=== PATIENT | female | born 1935 | race Caucasian/White ===

== ENCOUNTER 2021-11-29 09:33 | Inpatient (IN) | payer MEDICARE ==
[~2021-11-29] VITALS: Ht 154.9 cm; Wt 49.9 kg
[2021-11-29] MEDS ORDERED: FOLI1TAB94 PO (10:00)
[2021-11-29] MEDS ORDERED: AZAT50TA18 PO (10:00)
[2021-11-29] MEDS ORDERED: VITAMIN D PO (10:00)
[2021-11-29] MEDS ORDERED: METH2.5T PO (10:00)
[2021-11-29] MEDS ORDERED: FLUT12AE5 INH (10:00)
[2021-11-29] MEDS ORDERED: FEXO-65 PO (10:00)
[2021-11-29] MEDS ORDERED: CALC600T35 PO (10:00)
--- NOTE | 2021-11-29 10:00 | NUR ---
PATIENT REMOVED FROM ROOM 3 AND INTO RM 4 B, OTOSCOPE NEEDED FOR DR. DEGROOT'S EVALUATION. REPORTS FALL AND PASSING OUT FOR MAYBE A SECOND WHILE STEPPING OUT OF SHOWER IN HOTEL. HERE VISITING FROM [place]. PLACED ON MONITOR AND VS Q 2 HOURS.
[2021-11-29] MEDS ORDERED: ZOLE5INF IV (10:06)
[2021-11-29] MEDS ORDERED: ONDANSETRON 4 MG/2 ML VIAL ONE (10:12)
[2021-11-29] MEDS ORDERED: CEFTRIAXONE /D5W 50ML IVPB **ER PYXIS IV ONE (10:12)
[2021-11-29] MEDS ORDERED: ONDANSETRON 4 MG/2 ML VIAL IV ONE (10:15)
[2021-11-29] MEDS ORDERED: IV NORMAL SALINE 1000 ML BAG IV ONE (10:15)
[2021-11-29] MEDS ORDERED: CEFTRIAXONE 1 G in IV DEXTROSE 5% 50 ML IV ONE (10:15)
--- NOTE | 2021-11-29 10:33 | NUR ---
PT SEEN AND EVALUATED BY DR DEGROOT. AT BEDSIDE.
[2021-11-29 10:46] LABS: HEMATOCRIT 43.5 % (31.2-41.9); MEAN CORPUSCULAR VOLUME 97.2 fL (75.5-95.3); PLATELET COUNT (AUTO) 310 K/uL (179-408)
[2021-11-29 11:00] LABS: ALANINE AMINOTRANSFERASE 14 U/L (14-59); ALKALINE PHOSPHATASE 38 U/L (50-136); ASPARTATE AMINOTRANSFERASE 12 U/L (15-37); BILIRUBIN,DIRECT 0.2 mg/dL (0.0-0.2); BILIRUBIN,TOTAL 1.1 mg/dL (0.2-1.0); CARBON DIOXIDE 25 mmol/L (21-32); CHLORIDE 102 mmol/L (98-107); CREATININE 0.9 mg/dL (0.6-1.3); GLUCOSE 104 mg/dL (74-106); POTASSIUM 3.9 mmol/L (3.5-5.1); TOTAL PROTEIN, SERUM 7.8 g/dL (6.4-8.2); UREA NITROGEN, BLOOD 17 mg/dL (7-18)
[2021-11-29] MEDS ORDERED: LIDOCAINE 2%-EPI 1:100,000 20 ML VIAL ONE (11:44)
[2021-11-29] MEDS ORDERED: SODIUM BICARBONATE 4.2 % (NEUT) 5 ML VIAL TP ONE (11:45)
[2021-11-29] MEDS ORDERED: TDAP DIPH,PERTUSS,TET VAC/PF 0.5 ML DISP.SYRIN IM ONE ×2 (11:45→12:18)
[2021-11-29] MEDS ORDERED: SODIUM BICARBONATE 4.2 % (NEUT) 5 ML VIAL ONE (11:45)
[2021-11-29] MEDS ORDERED: LIDOCAINE 1%-EPI 1:100,000 20 ML VIAL IJ ONE (11:45)
[2021-11-29 12:00] VITALS: BP 124/62
--- NOTE | 2021-11-29 12:00 | NUR ---
NO DISTRESS NOTED, VSS, LIPS SUTURES INTACT. MARISA FLUIDS AND AWAITING ADMISSION ORDERS AND BED AVAIL
[2021-11-29] MEDS ORDERED: ACETAMINOPHEN ES 500 MG TABLET PO ONE (15:15)
[2021-11-29] MEDS ORDERED: ONDANSETRON 4 MG/2 ML VIAL IV PRN (15:15)
[2021-11-29] MEDS ORDERED: IV 1/2NS 1000 ML 1,000 ML IV PRN (15:15)
[2021-11-29] MEDS ORDERED: REMEDY ESSENTIAL ZINC PASTE 113 GM TP PRN (15:15)
[2021-11-29] MEDS ORDERED: ACETAMINOPHEN 325 MG TABLET ONE (15:37)
[2021-11-29] MEDS ORDERED: ENOXAPARIN SODIUM 40 MG/0.4 ML DISP.SYRIN SQ ONE (15:37)
[2021-11-29 16:00] VITALS: BP 119/61
[2021-11-29] MEDS: ACETAMINOPHEN 325 MG TABLET PO PRN (16:07)
[2021-11-29] MEDS: ENOXAPARIN SODIUM 40 MG/0.4 ML DISP.SYRIN SQ SCH (16:14)
--- NOTE | 2021-11-29 16:20 | NUR ---
ASKED REG TO PLACED PT IN TRANSITION FOR MEDS TO BE VERIFY BY PHARMACY.
--- NOTE | 2021-11-29 19:25 | NUR ---
NO DISTRESS, DENIES ESTRADA AND LOWER LIP DISCOMFORT, MARISA SOUP 180 ML PO.VOIDING WITHOUT DIFFICULTY. 1/2 NS INFUSING AT 75 ML/HR VIA PUMP RIGHT AC.
[2021-11-29 20:00] VITALS: BP 133/66
[2021-11-29] MEDS ORDERED: MAGNESIUM HYDROXIDE 30 ML LIQUID UDC PO PRN (21:00)
--- NOTE | 2021-11-29 22:00 | NUR ---
NO DISTRESS NOTED, VSS,PER CM NSR.
--- NOTE | 2021-11-29 23:20 | NUR ---
REPORTED OF TO INCOMING RN ASSUMING CARE
--- NOTE | 2021-11-30 05:43 | NUR ---
pt able to walk to the bathroom with no difficulty or SOB. Pt denies dizziness. No bleeding on the sutures on the lip.
[2021-11-30 06:19] LABS: HEMATOCRIT 38.3 % (31.2-41.9); MEAN CORPUSCULAR VOLUME 98.6 fL (75.5-95.3); PLATELET COUNT (AUTO) 277 K/uL (179-408)
[2021-11-30] MEDS ORDERED: PANTOPRAZOLE SODIUM 40 MG TABLET.DR PO SCH (07:00)
[2021-11-30 07:09] LABS: CARBON DIOXIDE 23 mmol/L (21-32); CHLORIDE 104 mmol/L (98-107); GLUCOSE 66 mg/dL (74-106); POTASSIUM 4.1 mmol/L (3.5-5.1)
[2021-11-30 07:10] LABS: CHOLESTEROL 240 mg/dL (<200); CREATININE 0.7 mg/dL (0.6-1.3); HDL CHOLESTEROL 92 mg/dL (40-60); MAGNESIUM 1.8 mg/dL (1.8-2.4); TRIGLYCERIDES 78 MG/DL (30-150); UREA NITROGEN, BLOOD 21 mg/dL (7-18)
--- NOTE | 2021-11-30 07:10 | NUR ---
Care assumed and bedside report obtained. VSS and patient reports ESTRADA 5 med with tylenol po 650 mg.
[2021-11-30] MEDS ORDERED: ACETAMINOPHEN 325 MG TABLET ONE (07:26)
--- NOTE | 2021-11-30 07:41 | NUR ---
Report given to [place].
[2021-11-30 07:56] LABS: THYROID STIMULATING HORMONE 1.126 mIU/mL (0.358-3.740)
[2021-11-30 07:57] VITALS: BP 143/77
[2021-11-30] MEDS ORDERED: PANTOPRAZOLE SODIUM 40 MG TABLET.DR PO ONE (08:04)
[2021-11-30] MEDS: ACETAMINOPHEN 325 MG TABLET PO PRN (08:05)
[2021-11-30] MEDS ORDERED: ENOXAPARIN SODIUM 40 MG/0.4 ML DISP.SYRIN SQ ONE (09:20)
[2021-11-30] MEDS: ENOXAPARIN SODIUM 40 MG/0.4 ML DISP.SYRIN SQ SCH (10:02)
--- NOTE | 2021-11-30 10:40 | NUR ---
REPORT WAS GIVEN TO PASTRY COOK. PT WAS TRANSFERED TO TELEMETRY ROOM #329.
[2021-11-30 12:30] VITALS: BP_SYST 140; BP_SYST 147; BP_SYST 149; BP_DIAS 66; BP_DIAS 67; BP_DIAS 72
--- NOTE | 2021-11-30 15:55 | NUR ---
LEFT AMA DID NOT WANT TO WAIT ANY LONGER SAYS SHE WILL F/U WITH HER PRIMARY. ORTHOSTATIC B/PS WNL
== END 2021-11-30 14:20 | disposition left against medical advice (07) | DRG 74 ==
LOC: ER 09:33 → TRANSITION 15:56 → TELE3 11-30 08:19
PROVIDERS: ADMIT Nurse Practitioner Family; ATTEND Nurse Practitioner Family
PROC: 0CQ1XZZ Repair Lower Lip, External Approach (ICD-10-PCS; principal; 2021-11-29)
PROC: 0CQ4XZZ Repair Buccal Mucosa, External Approach (ICD-10-PCS; 2021-11-29)
DX: G90.8 Other disorders of autonomic nervous system (principal); M30.1 Polyarteritis with lung involvement [Churg-Strauss]; E86.0 Dehydration; Z79.51 Long term (current) use of inhaled steroids; S01.511A Laceration without foreign body of lip, initial encounter; W19.XXXA Unspecified fall, initial encounter; Y93.9 Activity, unspecified; Y92.009 Unspecified place in unspecified non-institutional (private) residence as the place of occurrence of the external cause; Z20.822 Contact with and (suspected) exposure to COVID-19
CPT/HCPCS: 36415; 70450; 71045; 83735; 84443; 84484; 85025; 85730; 90715; 93005; 93307; A4663; G0378; J0696; J1650; J2405; J3490; J7040